=== PATIENT | male | born 1975 | race Caucasian/White ===

== ENCOUNTER 2021-08-13 07:16 | Day surgery (SDC) | payer OTHER ==
[~2021-08-13 07:16] MED LIST: Lactated Ringers 1,000 ML IV SCH
[2021-08-13] MEDS ORDERED: Propofol 200 MG/20 ML SDV ONE (08:15)
[2021-08-13] MEDS ORDERED: fentaNYL 100 MCG/2 ML SDV ONE (08:15)
[2021-08-13] MEDS ORDERED: Lactated Ringers 1,000 ML IV SCH (09:15)
== END 2021-08-13 09:40 | disposition home or self-care (01) ==
LOC: MW.SDS 07:16
PROVIDERS: ATTEND Surgery
DX: R19.4 Change in bowel habit (principal); E66.9 Obesity, unspecified; Z98.890 Other specified postprocedural states; Z87.891 Personal history of nicotine dependence; Z68.31 Body mass index [BMI] 31.0-31.9, adult
CPT/HCPCS: 45378; J2704; J3010; J7120; 00811